=== PATIENT | male | born 1960 | race African-American/Black ===

== ENCOUNTER 2021-04-18 16:23 | Observation (INO) ==
[2021-04-18] MEDS ORDERED: SODIUM CHLORIDE 0.9% 1,000 ML IV STA (17:47)
[2021-04-18] MEDS ORDERED: DOCUSATE SODIUM 100 MG CAPSULE PO PRN (20:36)
[2021-04-18] MEDS ORDERED: GLUCAGON 1 MG VIAL IM PRN (20:36)
[2021-04-18] MEDS ORDERED: ONDANSETRON 4 MG/2 ML VIAL IV PRN (20:36)
[2021-04-18] MEDS ORDERED: DEXTROSE 50% 25 GM/50 ML VIAL IV PRN ×2 (20:36→20:37)
[2021-04-18] MEDS ORDERED: SODIUM ZIRCONIUM CYCLOSILICATE 10 GM PACK PO ONE (20:47)
[2021-04-18 21:40] LABS: Calcium 8.2 MG/DL (8.5-10.1)
[2021-04-18 21:41] LABS: Albumin 2.4 G/DL (3.4-5.0); Bilirubin,Direct 5.75 MG/DL (0.0-0.20); Bilirubin,Indirect 1.3 MG/DL (0.0-1.0); Osmolality,Calculated 271.5 MOS/KG (273-304); Potassium 5.1 MMOL/L (3.5-5.1); Total Protein 6.8 G/DL (6.4-8.2)
[2021-04-18 21:46] LABS: Hepatitis C Virus Ab Quant 0.05 Index; Hepatitis C Virus Ab Result Non-Reactive (NonReactive)
[2021-04-18 21:47] LABS: Basophils % 0.4 % (0.0-0.8); Eosinophils % 0.1 % (0.00-10.9); Hematocrit 41.5 VOL% (42.0-52.0); Hemoglobin 14.4 GM/DL (14.0-18.0); Hepatitis B Core IgM Quant < 0.05 Index; Hepatitis B Surface Ag Quant < 0.10 Index; Hepatitis B Surface Ag Result Non-Reactive (NonReactive); Immature Granulocytes % 0.7 %; Immature Granulocytes Absolute 0.07 #; Lymphocytes # 5.1 10*3/uL (1.4-4.0); Lymphocytes % 53.9 % (21.2-54.2); Mean Corpuscular HGB Conc 34.7 GM/DL (32-36); Mean Corpuscular Volume 81.9 FL (87-102); Mean Platelet Volume 10.8 FL (9.6-12.0); Monocytes % 10.6 % (1.7-12.7); Neutrophils % 34.3 % (38.7-73.9); Platelet Count 290 T/CUMM (130-400); Red Blood Count 5.07 MC/CUMM (3.8-5.5); Red Cell Distribution Width 15.1 % (9.3-17.3); White Blood Count 9.5 T/CUMM (4-12)
[2021-04-18 21:50] LABS: Amorphous Crystals,Urine Occasional /HPF (Few); Blood, Urine Moderate mg/dL (Negative); Glucose,Urine (UA) Negative (Negative); Ketones,Urine Negative (Negative); Mucus,Urine Occasional /LPF (Occasional); Nitrite,Urine Negative (Negative); Platelet Estimate Adequate; Protein,Urine 100 MG/DL; RBC,Urine 1 /HPF (0-4); Sperm,Urine Occasional /HPF (Negative); Squamous Epithelial Cell,Urine Occasional /HPF (0-10); Urine Appearance CLOUDY (Clear); Urine Color Amber (Yellow); Urine Specific Gravity 1.019 (1.001-1.035)
[2021-04-18 21:51] LABS: Atypical Lymphocytes Few; Bilirubin,Urine Moderate mg/dL (Negative); Lymphocytes 48 % (20-55); Segmented Neutrophils 46 % (50-85); Total Cells Counted 100
[2021-04-18 21:52] LABS: Anisocytosis Slight; Reactive Lymphocytes Few; Smudge Cells Few
[2021-04-18 21:54] LABS: Calcium 8.4 MG/DL (8.5-10.1); Osmolality,Calculated 270.5 MOS/KG (273-304)
[2021-04-18 21:55] LABS: Potassium 6.3 MMOL/L (3.5-5.1)
[2021-04-18] MEDS: INSULIN REGULAR 100 UNIT/ML SUBCUT SCH (22:39)
[2021-04-18] MEDS: SODIUM CHLORIDE 0.45% 1,000 ML IV SCH (22:55)
[2021-04-18] MEDS: ENOXAPARIN 40 MG/0.4 ML SYRINGE SUBCUT SCH (22:57)
[2021-04-19] MEDS: SODIUM CHLORIDE 0.45% 1,000 ML IV SCH (07:53)
[2021-04-19] MEDS: INSULIN REGULAR 100 UNIT/ML SUBCUT SCH ×4 (07:53→21:18)
[2021-04-19 07:54] LABS: Basophils # 0.1 10*3/uL (0.0-0.2); Basophils % 0.9 % (0.0-0.8); Eosinophils % 0.2 % (0.00-10.9); Hematocrit 38.5 VOL% (42.0-52.0); Hemoglobin 13.3 GM/DL (14.0-18.0); Immature Granulocytes % 0.8 %; Immature Granulocytes Absolute 0.07 #; Lymphocytes # 4.8 10*3/uL (1.4-4.0); Lymphocytes % 54.6 % (21.2-54.2); Mean Corpuscular HGB Conc 34.5 GM/DL (32-36); Mean Platelet Volume 10.8 FL (9.6-12.0); Monocytes % 13.6 % (1.7-12.7); Neutrophils % 29.9 % (38.7-73.9); Platelet Count 258 T/CUMM (130-400); Red Blood Count 4.64 MC/CUMM (3.8-5.5); Red Cell Distribution Width 15.2 % (9.3-17.3); White Blood Count 8.8 T/CUMM (4-12)
[2021-04-19 08:03] LABS: INR 1.7; PT Patient Result 18.2 SECS (10.5-12.0)
[2021-04-19] MEDS ORDERED: SODIUM POLYSTYRENE SULFATE 15 GM/60 ML BOTTLE PO ONE (08:20)
[2021-04-19 08:21] LABS: Lymphocytes 51 % (20-55); Platelet Estimate Normal; Segmented Neutrophils 38 % (50-85); Smudge Cells 1+; Total Cells Counted 100
[2021-04-19 08:22] LABS: Anisocytosis 1+; Atypical Lymphocytes 1+; Macrocytosis 1+; Target Cells Few
[2021-04-19 08:29] LABS: Albumin 2.3 G/DL (3.4-5.0); Bilirubin,Direct 5.89 MG/DL (0.0-0.20); Bilirubin,Total 7.3 MG/DL (0.2-1.0); Calcium 7.8 MG/DL (8.5-10.1); Osmolality,Calculated 275.2 MOS/KG (273-304); Potassium 4.7 MMOL/L (3.5-5.1); Total Protein 6.4 G/DL (6.4-8.2)
[2021-04-19 09:08] LABS: % Iron Saturation 49.5 % (18-50)
[2021-04-19] MEDS: amLODIPine 10 MG TABLET PO SCH (09:13)
[2021-04-19 09:39] LABS: Calcium 7.8 MG/DL (8.5-10.1); Osmolality,Calculated 276.2 MOS/KG (273-304); Potassium 4.7 MMOL/L (3.5-5.1)
[2021-04-19] MEDS: LACTATED RINGERS 1,000 ML IV SCH ×3 (10:31→23:25)
[2021-04-19] MEDS ORDERED: INSULIN GLARGINE 100 UNIT/ML SUBCUT SCH (21:00)
[2021-04-19] MEDS: ENOXAPARIN 40 MG/0.4 ML SYRINGE SUBCUT SCH (21:18)
[2021-04-20] MEDS: LACTATED RINGERS 1,000 ML IV SCH (05:47)
[2021-04-20 06:07] LABS: Basophils % 0.3 % (0.0-0.8); Eosinophils % 0.5 % (0.00-10.9); Hematocrit 37.8 VOL% (42.0-52.0); Hemoglobin 13.4 GM/DL (14.0-18.0); Immature Granulocytes % 0.7 %; Immature Granulocytes Absolute 0.06 #; Lymphocytes # 5.1 10*3/uL (1.4-4.0); Lymphocytes % 59.4 % (21.2-54.2); Mean Corpuscular HGB Conc 35.4 GM/DL (32-36); Mean Corpuscular Volume 80.6 FL (87-102); Mean Platelet Volume 11.4 FL (9.6-12.0); Monocytes % 10.3 % (1.7-12.7); Neutrophils % 28.8 % (38.7-73.9); Platelet Count 208 T/CUMM (130-400); Red Blood Count 4.69 MC/CUMM (3.8-5.5); Red Cell Distribution Width 15.2 % (9.3-17.3); White Blood Count 8.6 T/CUMM (4-12)
[2021-04-20 06:16] LABS: INR 1.4; PT Patient Result 15.6 SECS (10.5-12.0)
[2021-04-20 06:34] LABS: Atypical Lymphocytes Few; Lymphocytes 53 % (20-55); Platelet Estimate Adequate; Segmented Neutrophils 35 % (50-85); Total Cells Counted 100
[2021-04-20 06:35] LABS: Albumin 2.1 G/DL (3.4-5.0); Bilirubin,Total 7.3 MG/DL (0.2-1.0); Calcium 8.2 MG/DL (8.5-10.1); Hypochromasia Slight; Microcytosis Slight; Osmolality,Calculated 270.4 MOS/KG (273-304); Potassium 4.5 MMOL/L (3.5-5.1); Total Protein 6.3 G/DL (6.4-8.2)
[2021-04-20] MEDS: INSULIN REGULAR 100 UNIT/ML SUBCUT SCH ×3 (08:57→17:03)
[2021-04-20] MEDS: amLODIPine 10 MG TABLET PO SCH (08:57)
[2021-04-20 16:41] VITALS: BP 149/102
[2021-04-22 14:36] LABS: Antinuclear Ab, S 0.4 U
[2021-04-23 12:58] LABS: Alpha-1-Antitrypsin, Serum 231 mg/dL (100 - 190)
== END 2021-04-20 17:50 | disposition home or self-care (01) ==
LOC: N.ED 16:23 → N.EDINP 16:23 → SUATTDRO 20:06 → N.TELEN 22:05
PROVIDERS: ADMIT Internal Medicine; ATTEND Internal Medicine